=== PATIENT | female | born 1960 | race Asian ===

== ENCOUNTER 2022-11-14 12:51 | Outpatient (CLI) | payer BC ==
--- NOTE | 2022-11-14 18:31 | XRAY Report ---
PROCEDURE: Wrist 4 View LT INDICATIONS: LEFT WRIST PAIN/FALL TECHNIQUE: 4 views of the wrist were acquired. COMPARISON: None. FINDINGS: Bones: There is a comminuted, moderately displaced fracture seen of the distal radius, with intra-ar ticular involvement. There is an associated mild to moderately displaced fracture of the ulnar styloi d. Soft tissues: Associated soft tissue swelling is seen. IMPRESSION: Moderately displaced comminuted distal radius fracture, with intra-articular involvement. An associated ulnar styloid fracture is also seen. If it would be helpful for clinical management decision making, please consider a dedicated wrist CT for further evaluation. Reviewed by: Sancho Sexton MD on 11/14/2022 5:30 PM [facility] Approved by: Sancho Sexton MD on 11/14/2022 5:30 PM [facility] Station ID: [id number]
== END 2022-11-14 23:59 | disposition home or self-care (01) ==
LOC: DI.S 12:51
PROVIDERS: ATTEND Physician Assistant
DX: S52.572A Other intraarticular fracture of lower end of left radius, initial encounter for closed fracture (principal); S52.612A Displaced fracture of left ulna styloid process, initial encounter for closed fracture